=== PATIENT | female | born 1970 ===

== ENCOUNTER 2018-11-05 09:45 | Emergency (ER) | payer OTHER ==
[~2018-11-05] VITALS: Ht 152.4 cm; Wt 59.0 kg
[~2018-11-05 09:45] MED LIST: ADVIL200 M1; CEFUROXIME500 MG PO; LAXATIVE5 M1
== END 2018-11-05 10:55 | disposition home or self-care (01) ==
LOC: ER 09:45
DX: M79.641 Pain in right hand (principal)

== ENCOUNTER 2021-04-29 07:25 | Outpatient (CLI) | payer OTHER | END 2021-04-29 07:37 | disposition home or self-care (01) | LOC: SONOGRAMA 07:25 | PROVIDERS: ATTEND Internal Medicine | DX: E04.8 Other specified nontoxic goiter (principal) ==

== ENCOUNTER 2021-07-15 15:24 | Outpatient (CLI) | payer OTHER | END 2021-07-15 15:35 | disposition home or self-care (01) | LOC: RAD 15:24 | DX: R07.89 Other chest pain (principal); I10 Essential (primary) hypertension; I15.8 Other secondary hypertension ==

== ENCOUNTER 2022-05-17 09:46 | Outpatient (CLI) | payer OTHER | END 2022-05-17 10:02 | disposition home or self-care (01) | LOC: MAMO-SONO 09:46 | PROVIDERS: ATTEND Obstetrics & Gynecology | DX: N63.20 Unspecified lump in the left breast, unspecified quadrant (principal) ==

== ENCOUNTER 2023-10-11 07:36 | Outpatient (CLI) | payer OTHER | END 2023-10-11 07:48 | disposition home or self-care (01) | LOC: RAD 07:36 | PROVIDERS: ATTEND Orthopaedic Surgery | DX: Z01.818 Encounter for other preprocedural examination (principal) ==

== ENCOUNTER 2024-03-16 15:45 | Outpatient (CLI) | payer OTHER | END 2024-03-16 15:46 | disposition home or self-care (01) | LOC: RAD 15:45 | DX: S73.191A Other sprain of right hip, initial encounter (principal); M25.851 Other specified joint disorders, right hip ==

== ENCOUNTER 2024-09-25 08:39 | Outpatient (CLI) | payer OTHER | END 2024-09-25 09:00 | disposition home or self-care (01) | LOC: MAMO-SONO 08:39 | PROVIDERS: ATTEND Obstetrics & Gynecology | DX: N63.10 Unspecified lump in the right breast, unspecified quadrant (principal); N63.20 Unspecified lump in the left breast, unspecified quadrant ==

== ENCOUNTER 2024-10-30 07:22 | Outpatient (CLI) | payer OTHER | END 2024-10-30 07:29 | disposition home or self-care (01) | LOC: SONOGRAMA 07:22 | PROVIDERS: ATTEND Obstetrics & Gynecology | DX: E34.9 Endocrine disorder, unspecified (principal) ==